=== PATIENT | female | born 1990 | race Caucasian/White ===

== ENCOUNTER 2021-03-04 11:13 | Outpatient (CLI) | payer OTHER ==
[2021-03-04 21:57] LABS: SARS-CoV-2 PCR by NAA Not Detected (NotDetected)
== END 2021-03-04 11:14 | disposition home or self-care (01) ==
LOC: CSHLAB 11:13
PROVIDERS: ATTEND Obstetrics & Gynecology
DX: Z20.822 Contact with and (suspected) exposure to COVID-19 (principal)
CPT/HCPCS: 87635; U0003; U0005